=== PATIENT | female | born 1945 | race Asian ===

== ENCOUNTER 2021-12-13 08:44 | Emergency (ER) | payer SELFPAY ==
[2021-12-13] MEDS ORDERED: Polyethylene Glycol 3350 Powder 17 GM Packet PO ONE (09:46)
[2021-12-13 10:04] LABS: CHLORIDE,CL 103 mmol/L (98-107); SODIUM,NA 137 mmol/L (136-145)
[2021-12-13 10:05] LABS: ANION GAP 9.7 mmol/L (5-15)
[2021-12-13] MEDS ORDERED: Bisacodyl 5 MG Tab PO ONE (10:13)
== END 2021-12-13 10:25 | disposition home or self-care (01) ==
LOC: VM.ED 08:44
DX: K59.00 Constipation, unspecified (principal); I10 Essential (primary) hypertension
CPT/HCPCS: 36415; 74019; 80053; 83605; 85025; 99284; A9270

== ENCOUNTER 2022-08-19 07:05 | Emergency (ER) | payer MEDICARE ==
[2022-08-19 08:11] LABS: ANION GAP 10.6 mmol/L (5-15)
[2022-08-19] MEDS: Iopamidol 755 Mg/ML 100 ML Bottle IVPUSH ONE (09:06)
[2022-08-19] MEDS: Ibuprofen 200 MG Tab PO ONE (10:28)
== END 2022-08-19 11:15 | disposition home or self-care (01) ==
LOC: VM.ED 07:05
DX: M79.605 Pain in left leg (principal); R07.89 Other chest pain; I10 Essential (primary) hypertension; E78.00 Pure hypercholesterolemia, unspecified; G20 Parkinson's disease; Z79.899 Other long term (current) drug therapy
CPT/HCPCS: 36415; 80053; 82550; 83615; 84484; 85025; 85379; 86140; 93005; 93010; 99284; 99285; A9270-GY; Q9967

== ENCOUNTER 2023-06-12 21:06 | Emergency (ER) | payer MEDICARE ==
[2023-06-12 21:50] LABS: EOSINOPHILS ABSOLUTE AUTO 0.1 x10^3/uL (0.0-0.5); EOSINOPHILS PERCENT AUTO 0.9 % (0.0-4.0); HEMATOCRIT 34.6 % (33.0-47.0); HEMOGLOBIN 11.6 g/dL (12.0-16.0); IMMATURE GRAN ABSOLUTE AUTO 0.05 x10^3/uL (0.00-0.07); LYMPHOCYTES ABSOLUTE AUTO 2.1 x10^3/uL (1.0-4.8); LYMPHOCYTES PERCENT AUTO 27.7 % (25.0-50.0); MEAN CORPUSCULAR HEMOGLOBIN 31.8 pg (26.0-32.0); MEAN CORPUSCULAR HGB CONC 33.5 g/dL (32.0-36.0); MEAN CORPUSCULAR VOLUME 94.8 fL (78.0-93.0); MONOCYTES ABSOLUTE AUTO 0.6 x10^3/uL (0.0-0.8); MONOCYTES PERCENT AUTO 8.5 % (2.0-11.0); NEUTROPHILS ABSOLUTE AUTO 4.6 x10^3/uL (1.8-7.7); NEUTROPHILS PERCENT AUTO 62.2 % (50.0-80.0); PLATELET COUNT,PLT 229 x10^3/uL (130-400); RED BLOOD CELL COUNT 3.65 x10^6/uL (4.00-5.50); WHITE BLOOD CELL COUNT,WBC 7.4 x10^3/uL (4.0-10.0)
[2023-06-12 22:17] LABS: A/G RATIO 0.92; ALANINE AMINOTRANSFERASE,ALT 8 U/L (14-59); ALBUMIN 3.6 g/dL (3.4-5.0); ALKALINE PHOSPHATASE 68 U/L (46-116); ASPARTATE AMNIOTRANSFERASE,AST 14 U/L (15-37); BILIRUBIN TOTAL 0.5 mg/dL (0.2-1.0); BLOOD UREA NITROGEN,BUN 39 mg/dL (7-18); C-REACTIVE PROTEIN 0.15 mg/dL (<=0.30); CALCIUM 9.2 mg/dL (8.5-10.1); CARBON DIOXIDE,CO2 31 mmol/L (21-32); CHLORIDE,CL 100 mmol/L (98-107); CREATINE KINASE,CK 59 U/L (26-192); CREATININE 1.6 mg/dL (0.55-1.02); GLUCOSE RANDOM 96 mg/dL (70-99); POTASSIUM,K 4.7 mmol/L (3.5-5.1); PROTEIN TOTAL,TP 7.5 g/dL (6.4-8.2); SODIUM,NA 138 mmol/L (136-145)
[2023-06-12 22:25] LABS: ANION GAP 11.7 mmol/L (5-15); ESTIMATED GFR 33 mL/min (>=60)
== END 2023-06-12 23:43 | disposition home or self-care (01) ==
LOC: VM.ED 21:06
DX: R07.89 Other chest pain (principal); E78.00 Pure hypercholesterolemia, unspecified; I10 Essential (primary) hypertension
CPT/HCPCS: 36415; 71046; 80053; 82550; 84484; 85025; 86140; 93005; 93010; 99284; 99285

== ENCOUNTER 2023-10-17 10:46 | Emergency (ER) | payer MEDICARE ==
[2023-10-17] MEDS ORDERED: Sodium Chloride 0.9% 10 ML Syringe FLUSH PRN (11:09)
[2023-10-17 11:27] LABS: BASOPHILS PERCENT AUTO 0.2 % (0.2-1.2); EOSINOPHILS ABSOLUTE AUTO 0.1 x10^3/uL (0.0-0.5); HEMATOCRIT 35.2 % (33.0-47.0); HEMOGLOBIN 11.2 g/dL (12.0-16.0); IMMATURE GRAN ABSOLUTE AUTO 0.01 x10^3/uL (0.00-0.07); LYMPHOCYTES ABSOLUTE AUTO 1.1 x10^3/uL (1.0-4.8); LYMPHOCYTES PERCENT AUTO 17.8 % (25.0-50.0); MEAN CORPUSCULAR HEMOGLOBIN 30.4 pg (26.0-32.0); MEAN CORPUSCULAR HGB CONC 31.8 g/dL (32.0-36.0); MEAN CORPUSCULAR VOLUME 95.4 fL (78.0-93.0); MONOCYTES ABSOLUTE AUTO 0.4 x10^3/uL (0.0-0.8); MONOCYTES PERCENT AUTO 7.3 % (2.0-11.0); NEUTROPHILS ABSOLUTE AUTO 4.3 x10^3/uL (1.8-7.7); NEUTROPHILS PERCENT AUTO 73.5 % (50.0-80.0); PLATELET COUNT,PLT 160 x10^3/uL (130-400); RED BLOOD CELL COUNT 3.69 x10^6/uL (4.00-5.50); WHITE BLOOD CELL COUNT,WBC 5.9 x10^3/uL (4.0-10.0)
[2023-10-17 11:48] LABS: PROTHROMBIN TIME 10.3 SEC (9.5-12.2); PTT,PARTIAL THROMBOPLSTIN TIME 25.5 SEC (23.6-33.6)
[2023-10-17 11:50] LABS: LACTIC ACID 0.9 mmol/L (0.4-2.0)
[2023-10-17] MEDS: cloNIDine 0.1 MG Tab PO ONE (11:50)
[2023-10-17 11:57] LABS: A/G RATIO 1.05; ALANINE AMINOTRANSFERASE,ALT 10 U/L (14-59); ALBUMIN 3.9 g/dL (3.4-5.0); ALKALINE PHOSPHATASE 58 U/L (46-116); ASPARTATE AMNIOTRANSFERASE,AST 17 U/L (15-37); BILIRUBIN TOTAL 1.1 mg/dL (0.2-1.0); BLOOD UREA NITROGEN,BUN 22 mg/dL (7-18); CALCIUM 9.1 mg/dL (8.5-10.1); CARBON DIOXIDE,CO2 28 mmol/L (21-32); CHLORIDE,CL 104 mmol/L (98-107); CREATININE 1.7 mg/dL (0.55-1.02); GLUCOSE RANDOM 97 mg/dL (70-99); POTASSIUM,K 4.2 mmol/L (3.5-5.1); PROTEIN TOTAL,TP 7.6 g/dL (6.4-8.2); SODIUM,NA 142 mmol/L (136-145)
[2023-10-17 12:05] LABS: ANION GAP 14.2 mmol/L (5-15)
[2023-10-17 12:06] LABS: C-REACTIVE PROTEIN < 0.50 mg/dL (<=0.50); ESTIMATED GFR 31 mL/min (>=60)
[2023-10-17 12:08] LABS: CORONAVIRUS COVID-19 NAA NEGATIVE (NEGATIVE); INFLUENZA A NAA NEGATIVE (NEGATIVE); INFLUENZA B NAA NEGATIVE (NEGATIVE); RESPIRATORY SYNCYTIAL VIR NAA NEGATIVE (NEGATIVE)
[2023-10-17 12:21] LABS: BILIRUBIN,URINE NEGATIVE (NEGATIVE); COLOR,URINE YELLOW (YELLOW); GLUCOSE,URINE NEGATIVE (NEGATIVE); KETONES,URINE NEGATIVE (NEGATIVE); LEUKOCYTE ESTERASE,URINE SMALL (NEGATIVE); NITRITE,URINE NEGATIVE (NEGATIVE); OCCULT BLOOD,URINE NEGATIVE (NEGATIVE); PROTEIN,URINE NEGATIVE (NEGATIVE); UROBILINOGEN,URINE 0.2 EU/dL (0.2)
[2023-10-17] MEDS: methylPREDNISolone Sodium Succinate 125 MG/2 ML SDV IV ONE (12:24)
[2023-10-17] MEDS: Lactated Ringers 1,000 ML IV SCH (12:26)
[2023-10-17 12:30] LABS: APPEARANCE,URINE SLIGHTLY CLOUDY (CLEAR); BACTERIA,URINE FEW /HPF (NOT SEEN); RBC,URINE 0-5 /HPF (NOT SEEN); SQUAMOUS EPITHELIAL CELLS,UR OCCASIONAL /HPF (NOT SEEN)
[2023-10-17 12:31] LABS: MUCUS,URINE OCCASIONAL /LPF (NOT SEEN)
[2023-10-19] MEDS ORDERED: Take Home: Sulfamethoxazole/Trimethoprim 800-160 MG Tab, 6 Tab Pack PO ONE (16:26)
== END 2023-10-17 12:41 | disposition home or self-care (01) ==
LOC: VM.ED 10:46
DX: R07.89 Other chest pain (principal); I10 Essential (primary) hypertension; N39.0 Urinary tract infection, site not specified; E78.00 Pure hypercholesterolemia, unspecified; Z20.822 Contact with and (suspected) exposure to COVID-19; Z79.899 Other long term (current) drug therapy
CPT/HCPCS: 0241U; 36415; 71045; 80053; 81001; 83605; 84484; 85025; 85610; 85730; 86140; 87086; 87088; 87186; 93005; 93010; 96374; 99284; 99285-25; A9270-GY; J2930; J7120

== ENCOUNTER 2023-10-28 16:23 | Emergency (ER) | payer MEDICARE ==
[2023-10-28] MEDS ORDERED: Sodium Chloride 0.9% 10 ML Syringe FLUSH PRN (16:43)
[2023-10-28 17:11] LABS: EOSINOPHILS PERCENT AUTO 0.5 % (0.0-4.0); HEMATOCRIT 32.5 % (33.0-47.0); HEMOGLOBIN 10.3 g/dL (12.0-16.0); IMMATURE GRAN ABSOLUTE AUTO 0.02 x10^3/uL (0.00-0.07); LYMPHOCYTES PERCENT AUTO 17.3 % (25.0-50.0); MEAN CORPUSCULAR HEMOGLOBIN 30.6 pg (26.0-32.0); MEAN CORPUSCULAR HGB CONC 31.7 g/dL (32.0-36.0); MEAN CORPUSCULAR VOLUME 96.4 fL (78.0-93.0); MONOCYTES ABSOLUTE AUTO 0.4 x10^3/uL (0.0-0.8); MONOCYTES PERCENT AUTO 7.1 % (2.0-11.0); NEUTROPHILS ABSOLUTE AUTO 4.4 x10^3/uL (1.8-7.7); NEUTROPHILS PERCENT AUTO 74.8 % (50.0-80.0); PLATELET COUNT,PLT 142 x10^3/uL (130-400); RED BLOOD CELL COUNT 3.37 x10^6/uL (4.00-5.50); WHITE BLOOD CELL COUNT,WBC 5.9 x10^3/uL (4.0-10.0)
[2023-10-28] MEDS: Lactated Ringers 1,000 ML IV ONE (17:20)
[2023-10-28] MEDS: Ondansetron 4 MG/2 ML SDV IVPUSH ONE (17:20)
[2023-10-28 17:27] LABS: PROTHROMBIN TIME 10.3 SEC (9.5-12.2)
[2023-10-28 17:32] LABS: LACTIC ACID 1.4 mmol/L (0.4-2.0)
[2023-10-28 17:36] LABS: A/G RATIO 0.95; ALANINE AMINOTRANSFERASE,ALT 11 U/L (14-59); ALBUMIN 3.7 g/dL (3.4-5.0); ALKALINE PHOSPHATASE 59 U/L (46-116); AMYLASE 60 U/L (25-115); ASPARTATE AMNIOTRANSFERASE,AST 13 U/L (15-37); BILIRUBIN TOTAL 1.5 mg/dL (0.2-1.0); BLOOD UREA NITROGEN,BUN 31 mg/dL (7-18); CALCIUM 8.8 mg/dL (8.5-10.1); CARBON DIOXIDE,CO2 25 mmol/L (21-32); CHLORIDE,CL 99 mmol/L (98-107); CREATININE 2.1 mg/dL (0.55-1.02); GLUCOSE RANDOM 105 mg/dL (70-99); LIPASE 51 U/L (19-71); MAGNESIUM 2.1 mg/dL (1.8-2.4); POTASSIUM,K 4.9 mmol/L (3.5-5.1); PROTEIN TOTAL,TP 7.6 g/dL (6.4-8.2); SODIUM,NA 135 mmol/L (136-145)
[2023-10-28 17:37] LABS: ANION GAP 15.9 mmol/L (5-15); ESTIMATED GFR 24 mL/min (>=60)
[2023-10-28 17:40] LABS: BILIRUBIN,URINE NEGATIVE (NEGATIVE); COLOR,URINE DARK YELLOW (YELLOW); GLUCOSE,URINE 100 mg/dL (NEGATIVE); KETONES,URINE TRACE mg/dL (NEGATIVE); LEUKOCYTE ESTERASE,URINE SMALL (NEGATIVE); NITRITE,URINE NEGATIVE (NEGATIVE); OCCULT BLOOD,URINE NEGATIVE (NEGATIVE); PROTEIN,URINE 30 mg/dL (NEGATIVE); UROBILINOGEN,URINE 0.2 EU/dL (0.2)
[2023-10-28 17:47] LABS: APPEARANCE,URINE SLIGHTLY CLOUDY (CLEAR); RBC,URINE 0-5 /HPF (NOT SEEN); SQUAMOUS EPITHELIAL CELLS,UR OCCASIONAL /HPF (NOT SEEN)
[2023-10-28 17:48] LABS: BACTERIA,URINE FEW /HPF (NOT SEEN); MUCUS,URINE FEW /LPF (NOT SEEN)
[2023-10-28] MEDS: cefTRIAXone 2 GM Vial IVPUSH ONE (18:03)
[2023-10-28] MEDS: Alum Hydrox/Mag Hydrox/Simeth 30 ML, Lidocaine 2% 15 ML, Promethazine 12.5 MG PO ONE ×3 (18:52)
[2023-10-28] MEDS: Alum Hydroxide/Mag Hydroxide 30 ML, Lidocaine 2% 15 ML PO ONE ×2 (19:02)
== END 2023-10-28 18:59 | disposition home or self-care (01) ==
LOC: VM.ED 16:23
DX: N39.0 Urinary tract infection, site not specified (principal); R13.10 Dysphagia, unspecified; I10 Essential (primary) hypertension; E78.00 Pure hypercholesterolemia, unspecified; Z79.899 Other long term (current) drug therapy
CPT/HCPCS: 36415; 80053; 81001; 82150; 83605; 83690; 83735; 84484; 85025; 85610; 85730; 87086; 87088; 87186; 93005; 93010; 96361; 96374; 96375; 99284; 99284-25; A9270-GY; J0696; J2405; J7120

== ENCOUNTER 2023-12-12 09:52 | Emergency (ER) | payer MEDICARE ==
[2023-12-12 10:26] LABS: BASOPHILS PERCENT AUTO 0.2 % (0.2-1.2); EOSINOPHILS PERCENT AUTO 0.6 % (0.0-4.0); HEMATOCRIT 31.8 % (33.0-47.0); IMMATURE GRAN ABSOLUTE AUTO 0.01 x10^3/uL (0.00-0.07); LYMPHOCYTES ABSOLUTE AUTO 0.8 x10^3/uL (1.0-4.8); MEAN CORPUSCULAR HEMOGLOBIN 31.2 pg (26.0-32.0); MEAN CORPUSCULAR HGB CONC 31.4 g/dL (32.0-36.0); MEAN CORPUSCULAR VOLUME 99.1 fL (78.0-93.0); MONOCYTES ABSOLUTE AUTO 0.4 x10^3/uL (0.0-0.8); MONOCYTES PERCENT AUTO 7.8 % (2.0-11.0); NEUTROPHILS ABSOLUTE AUTO 4.1 x10^3/uL (1.8-7.7); NEUTROPHILS PERCENT AUTO 76.2 % (50.0-80.0); PLATELET COUNT,PLT 216 x10^3/uL (130-400); RED BLOOD CELL COUNT 3.21 x10^6/uL (4.00-5.50); WHITE BLOOD CELL COUNT,WBC 5.4 x10^3/uL (4.0-10.0)
[2023-12-12] MEDS: Sodium Chloride 0.9% 1,000 ML IV ONE (10:27)
[2023-12-12 10:58] LABS: ALANINE AMINOTRANSFERASE,ALT 7 U/L (14-59); ALBUMIN 3.6 g/dL (3.4-5.0); ALKALINE PHOSPHATASE 55 U/L (46-116); ANION GAP 13.8 mmol/L (5-15); ASPARTATE AMNIOTRANSFERASE,AST 23 U/L (15-37); BILIRUBIN TOTAL 0.9 mg/dL (0.2-1.0); BLOOD UREA NITROGEN,BUN 31 mg/dL (7-18); CALCIUM 9.3 mg/dL (8.5-10.1); CARBON DIOXIDE,CO2 29 mmol/L (21-32); CHLORIDE,CL 105 mmol/L (98-107); CREATININE 1.8 mg/dL (0.55-1.02); ESTIMATED GFR 28 mL/min (>=60); GLUCOSE RANDOM 121 mg/dL (70-99); POTASSIUM,K 4.8 mmol/L (3.5-5.1); PROTEIN TOTAL,TP 7.2 g/dL (6.4-8.2); SODIUM,NA 143 mmol/L (136-145)
[2023-12-12 10:59] LABS: C-REACTIVE PROTEIN < 0.50 mg/dL (<=0.50)
[2023-12-12 11:41] LABS: APPEARANCE,URINE SLIGHTLY CLOUDY (CLEAR); BILIRUBIN,URINE NEGATIVE (NEGATIVE); COLOR,URINE YELLOW (YELLOW); GLUCOSE,URINE NEGATIVE (NEGATIVE); KETONES,URINE TRACE mg/dL (NEGATIVE); LEUKOCYTE ESTERASE,URINE NEGATIVE (NEGATIVE); NITRITE,URINE NEGATIVE (NEGATIVE); OCCULT BLOOD,URINE LARGE (NEGATIVE); PH,URINE 6.5 (5.0-8.0); PROTEIN,URINE 30 mg/dL (NEGATIVE)
[2023-12-12 11:53] LABS: BACTERIA,URINE NOT SEEN /HPF (NOT SEEN); HYALINE CASTS,URINE FEW; MUCUS,URINE RARE /LPF (NOT SEEN); RBC,URINE 50-75 /HPF (NOT SEEN); SQUAMOUS EPITHELIAL CELLS,UR RARE /HPF (NOT SEEN); WBC,URINE 0-5 /HPF (NOT SEEN)
== END 2023-12-12 12:20 | disposition home or self-care (01) ==
LOC: VM.ED 09:52
DX: G20.A1 Parkinson's disease without dyskinesia, without mention of fluctuations (principal); R62.7 Adult failure to thrive; I10 Essential (primary) hypertension; E78.00 Pure hypercholesterolemia, unspecified; Z79.899 Other long term (current) drug therapy
CPT/HCPCS: 36415; 80053; 81001; 85025; 86140; 96360; 99284; 99284-25; J7030

== ENCOUNTER 2023-12-16 00:45 | Emergency (ER) | payer MEDICARE ==
[2023-12-16 01:27] LABS: BASOPHILS PERCENT AUTO 0.3 % (0.2-1.2); EOSINOPHILS ABSOLUTE AUTO 0.1 x10^3/uL (0.0-0.5); HEMATOCRIT 31.7 % (33.0-47.0); HEMOGLOBIN 10.3 g/dL (12.0-16.0); IMMATURE GRAN ABSOLUTE AUTO 0.01 x10^3/uL (0.00-0.07); LYMPHOCYTES ABSOLUTE AUTO 1.4 x10^3/uL (1.0-4.8); LYMPHOCYTES PERCENT AUTO 21.7 % (25.0-50.0); MEAN CORPUSCULAR HEMOGLOBIN 31.4 pg (26.0-32.0); MEAN CORPUSCULAR HGB CONC 32.5 g/dL (32.0-36.0); MEAN CORPUSCULAR VOLUME 96.6 fL (78.0-93.0); MONOCYTES ABSOLUTE AUTO 0.6 x10^3/uL (0.0-0.8); MONOCYTES PERCENT AUTO 9.4 % (2.0-11.0); NEUTROPHILS ABSOLUTE AUTO 4.2 x10^3/uL (1.8-7.7); NEUTROPHILS PERCENT AUTO 66.4 % (50.0-80.0); PLATELET COUNT,PLT 192 x10^3/uL (130-400); RED BLOOD CELL COUNT 3.28 x10^6/uL (4.00-5.50); WHITE BLOOD CELL COUNT,WBC 6.4 x10^3/uL (4.0-10.0)
[2023-12-16 01:46] LABS: A/G RATIO 1.06; ALANINE AMINOTRANSFERASE,ALT 8 U/L (14-59); ALBUMIN 3.7 g/dL (3.4-5.0); ALKALINE PHOSPHATASE 59 U/L (46-116); ANION GAP 12.9 mmol/L (5-15); ASPARTATE AMNIOTRANSFERASE,AST 22 U/L (15-37); BILIRUBIN TOTAL 0.7 mg/dL (0.2-1.0); BLOOD UREA NITROGEN,BUN 15 mg/dL (7-18); CARBON DIOXIDE,CO2 27 mmol/L (21-32); CHLORIDE,CL 101 mmol/L (98-107); CREATININE 1.6 mg/dL (0.55-1.02); ESTIMATED GFR 33 mL/min (>=60); GLUCOSE RANDOM 97 mg/dL (70-99); POTASSIUM,K 3.9 mmol/L (3.5-5.1); PROTEIN TOTAL,TP 7.2 g/dL (6.4-8.2); SODIUM,NA 137 mmol/L (136-145)
== END 2023-12-16 02:10 | disposition home or self-care (01) ==
LOC: VM.ED 00:45
DX: G47.01 Insomnia due to medical condition (principal); I10 Essential (primary) hypertension; E78.00 Pure hypercholesterolemia, unspecified; Z79.899 Other long term (current) drug therapy
CPT/HCPCS: 36415; 80053; 84484; 85025; 93005; 93010; 99284; 99285